=== PATIENT | female | born 1995 | race Hispanic/Latino ===

== ENCOUNTER 2019-10-29 19:13 | Outpatient (CLI) | payer MEDICAID ==
[2019-10-29] MEDS ORDERED: LACTATED RINGERS 1,000 ML IV SCH (21:00)
[2019-10-29 21:05] VITALS: BP 124/63
[2019-10-29 21:10] LABS: Bacteria,Urine 1+ /HPF (Negative); Bilirubin,Urine NEG (Negative); Blood,Urine NEG (Negative); Color,Urine Yellow (Yellow); Mucus,Urine 1+ /HPF; Protein,Urine <15 mg/dL mg/dL (Negative); Sperm,Urine FEW /HPF (NP); Urobilinogen,Urine < 2.0 mg/dL (<2.0)
--- NOTE | 2019-10-30 00:47 | Ultrasound Report ---
ULTRASOUND OBSTETRIC LIMITED INDICATION / CLINICAL INFORMATION: R/O ABRUPTION PLACENTA LOCATION. TECHNIQUE: Transabdominal ultrasound imaging. COMPARISON: None available. FINDINGS: HEART RATE (beats per minute): 149 AMNIOTIC FLUID INDEX (cm) = not measured PRESENTATION: Cephalic. ADDITIONAL FINDINGS: The placenta is located anterior in location. There is subtle hyperechoic area p osterior to the placenta of uncertain etiology. I certainly cannot entirely exclude the presence of s ubtle abruption. The area in question grossly measures approximately 6.4 x 2.2 cm. There is slightly increased vascularity present.. IMPRESSION: Subtle abnormal hyperechoic area posterior to the placenta as described above. I cannot exclude that an abruption is present and clinical correlation/follow-up is recommended. Signer Name: Tia Garcia MD Signed: 10/30/2019 12:42 AM Workstation Name: [id number]
== END 2019-10-30 01:23 | disposition home or self-care (01) ==
LOC: TRG 19:13
PROVIDERS: ATTEND Obstetrics & Gynecology
DX: O26.892 Other specified pregnancy related conditions, second trimester (principal); K62.5 Hemorrhage of anus and rectum; Z3A.20 20 weeks gestation of pregnancy
CPT/HCPCS: 76815; 81001; J7120